=== PATIENT | female | born 1960 | race Caucasian/White ===

== ENCOUNTER 2023-09-15 10:00 | Emergency (ER) | payer OTHER ==
[~2023-09-15] VITALS: Ht 167.6 cm; Wt 82.6 kg
[2023-09-15] MEDS ORDERED: SYNTHROID112 MCG PO (10:17)
[2023-09-15] MEDS ORDERED: AMLODIPINE-OLM1 EAC2 (10:17)
[2023-09-15] MEDS ORDERED: PROAIR RESPICL90 MCG (10:18)
[2023-09-15 11:15] LABS: HEMATOCRIT 41.3 % (36.0-45.00); MEAN CELL VOLUME 89.3 fL (80.00-100.00); MEAN CORPUSCULAR HEMOGLOBIN 30.3 pg (27.00-32.0); PLATELET COUNT 270 K/uL (150-450); RED BLOOD COUNT 4.63 M/uL (4.00-6.00)
== END 2023-09-15 13:07 | disposition home or self-care (01) ==
LOC: ER 10:00
PROVIDERS: Emergency Medicine
DX: J03.80 Acute tonsillitis due to other specified organisms (principal); Z88.2 Allergy status to sulfonamides; J04.0 Acute laryngitis